=== PATIENT | male | born 1935 | race Caucasian/White ===

== ENCOUNTER 2018-11-26 15:12 | Emergency (ER) | payer OTHER, BC ==
[~2018-11-26] VITALS: Ht 175.3 cm; Wt 77.1 kg
[~2018-11-26 15:12] MED LIST: ANUCORT-HC25 MG/SUPP RC; CALCIUM1 TAB PO; CLARITIN10 M1 PO; DOXYCYCLINE; NASONEX17 GM NS; SINGULAIR10 MG PO; TAMS0.4C PO; [UNRECOGNIZED DRUG - OTHER]; [UNRECOGNIZED DRUG - OTHER] PO
== END 2018-11-26 20:21 | disposition home or self-care (01) ==
LOC: ER 15:12
DX: R07.89 Other chest pain (principal); R55 Syncope and collapse; R06.02 Shortness of breath